=== PATIENT | female | born 1995 | race Caucasian/White ===

== ENCOUNTER 2021-10-02 10:46 | Day surgery (SDC) | payer OTHER, MEDICAID ==
[2021-09-28 12:40] VITALS: BMI 20.3
[~2021-10-02 10:46] MED LIST: DEXAMETHASONE SOD PHOSPHATE 4 MG/ML 1 ML VIAL IV ONE; LACTATED RINGERS 1,000 ML IV SCH; LIDOCAINE 1% (10MG/ML) FOR IV START INTRADERMA PRN; METOCLOPRAMIDE 5 MG/ML 2 ML VIAL IVP PRN; ONDANSETRON 4 MG/2 ML VIAL IVP ONE
[2021-10-02] MEDS ORDERED: MIDAZOLAM 2 MG/2 ML VIAL IVP ONE (12:13)
[2021-10-02] MEDS ORDERED: fentaNYL (PF) 50 MCG/ML 2 ML AMP IVP ONE (12:13)
[2021-10-02] MEDS ORDERED: GLYCOPYRROLATE 0.2 MG/ML 2 ML VIAL ONE (12:31)
[2021-10-02] MEDS ORDERED: LIDOCAINE 2% INJ 20 MG/ML (2 ML VIAL) ONE (12:31)
[2021-10-02] MEDS ORDERED: fentaNYL (PF) 50 MCG/ML 2 ML AMP ONE (12:31)
[2021-10-02] MEDS ORDERED: ROPIVACAINE 5 MG/ML 30 ML VIAL ONE (12:31)
[2021-10-02] MEDS ORDERED: PHENYLEPHRINE-0.9% NACL SYG 1,000 MCG/10 ML SYRINGE ONE (12:31)
[2021-10-02] MEDS ORDERED: PROPOFOL 10 MG/ML 20 ML VIAL IV ONE (12:31)
[2021-10-02] MEDS ORDERED: MIDAZOLAM 2 MG/2 ML VIAL ONE (12:31)
[2021-10-02] MEDS ORDERED: LACTATED RINGERS 1,000 ML IV ONE (14:11)
--- NOTE | 2021-10-02 14:49 | P.OP ---
Date of Procedure: 10/02/21 Procedure(s) Performed: PREOPERATIVE DIAGNOSES: 1. Right knee anterior cruciate ligament graft tear, status post ligament reconstruction; 2. Posterior horn lateral meniscus tear, status post meniscus repair; 3. Posterior horn medial meniscus tear POSTOPERATIVE DIAGNOSES: 1. Right knee anterior cruciate ligament graft tear, status post ligament reconstruction; 2. Posterior horn lateral meniscus tear, status post meniscus repair; 3. Stable posterior horn medial meniscus tear, 1 cm, with 3-4 mm of excursion PROCEDURES PERFORMED: 1. Right knee arthroscopically-assisted revision anterior cruciate ligament reconstruction with soft tissue allograft 2. Right knee arthroscopic partial lateral meniscectomy (20%), posterior horn; 3. Removal of tibial hardware (metallic button for graft suspension), and removal of lateral meniscal anchor ANESTHESIA: direct sales representative: Lori Mejias PA-C (assistance with: patient positioning, retraction, graft prep, camera operation, reconstruction, irrigation, closure, dressing) COMPLICATIONS: None ESTIMATED BLOOD LOSS: Less than 20 cc TOURNIQUET: 75 minutes DISPOSITION: To post-anesthesia care unit INDICATIONS: Sung is a 25-year-old female with a history of right knee ACL tear status post reconstruction approximately 3 or 4 years ago and lateral meniscus tear, status post repair. She also apparently has a medial meniscus tear according MRI. We have discussed different approaches to ACL revision reconstruction and the decision is for soft tissue allograft reconstruction with possible meniscal repair versus debridement. I have explained the details of this surgery thoroughly and also explained the potential risks and complications, including the relative risks of graft failure. We have discussed the lower rate of success for revision ACL reconstruction versus her primary. Other risks are inclusive of, but not limited to: bleeding, infection, scarring, discomfort, blood vessel and nerve damage, stiffness, weakness, need for further surgery, failure to relieve symptoms, arthritis, persistence or worsening of problems, , and other risks. The patient and parents are aware of these risks and agree to proceed with surgery. The consent form has been signed. PROCEDURE: After appropriate consent was obtained, the patient was taken to the operating room and placed supine on the operating table. General anesthesia was initiated. The knee was examined under anesthesia. Medial collateral, lateral collateral and posterior cruciate ligaments were all intact. There was positive pivot shift of 2+ and 4mm anterior translation with both Tracie and anterior drawer. Full range of motion was noted without crepitus although she did have some hyperextension of the knee. No effusion or soft tissue swelling was noted. Prepping and draping of the left knee was performed in the usual sterile fashion using ChloraPrep. Care was taken that all pressure points were adequately padded. Leg mcclain and pneumotourniquet were used. Time-out was called according to [facility] standards, confirming patient identity, surgical procedure, side, and antibiotic administration. Graft preparation took place on the Arthrex graft preparation station. Preprepared allograft was used. Measurement and preparation of the graft took place uneventfully. The graft was trimmed down to measure approximately 9-10 mm diameter and 68-72 mm length quadrupled graft. The graft was inserted onto the Arthrex ACL tightrope RT on one side, and the ABS sutures on the other. These devices were then attached to the adjustable sliding units on the prep station. The graft was then set to 20 pounds of tension on the graft prep board and covered with a sterile saline soaked gauze pad. During the preparation of the graft, arthroscopy commenced. The surgical portals were placed directly next to the patellar tendon medially and laterally. Camera and instruments were carefully inserted into the knee and arthroscopy was performed. The patellofemoral joint was normal. Hyaline cartilage was normal. No loose bodies in the medial or lateral gutters, quad tendon normal. No plica. Lateral compartment showed normal hyaline cartilage without defect. Meniscus showed unstable posterior horn lateral meniscus tear with loose meniscal anchor suture. This anchor suture along with its attached button was removed carefully. The lateral meniscus had re-torn in this region and was unstable. The tear was in the white white zone and considering its previous repair I did not feel that a repeat attempted repair would be successful. Therefore the posterior horn lateral meniscus tear was removed via meniscectomy with a basket forceps and shaver. Approximately 20% of meniscus was resected during this step No loose bodies were seen within the lateral compartment. Medial compartment was then examined. Medial hyaline cartilage of the femur and tibia were normal. Medial meniscus showed a stable posterior horn meniscus tear with approximately 3-4 mm of excursion and a total size approximately 1 cm. As the tear was small and stable, no resection was performed. The notch of the knee was then inspected. The patient had severe laxity of the previously placed graft without marium disruption. These loose fibers were debrided away with care to avoid injuring the PCL. The soft tissue on the lateral side of the notch was cleared as necessary using a shaver, and the FiberWire suture in this region was removed carefully using a grasping forcep. Similarly, the suture material around the tibial graft site was removed carefully one accessible using a grasping forcep. Next, the femoral socket was created using the Arthrex flip cutter guide. The guide was adjusted through the anterolateral portal after careful measurement of the anterior to posterior condylar distance on the lateral notch. A spot approximately between 40 and 50% of this length was chosen and the guide was moved superiorly only as much as to allow for a 2.5 mm back wall. This corresponded almost exactly to the previously created tunnel. Incision was created on the lateral side of the thigh over the IT band and the guide was placed against the bone. Guide position was adjusted so that there was 20 of anterior elevation in the coronal plane of the femur and 60 in the sagittal plane. Drilling was then performed using the flip cutter drill pin into the knee at the appropriate location. Once the pin position was noted to be satisfactory, the guide was removed and the drill sleeve was tapped into the bone using a mallet. The flip cutter was then deployed and retro-drilling was performed to create a femoral socket of approximately 25 mm. Debris was suctioned out using a shaver. Passing suture was then inserted into the knee joint and carried out through the anteromedial portal. The tibial tunnel was created by the following steps. The button for fixation of the previous graft of the tibia was removed through a 2 cm incision on the anterior aspect of the knee directly over the previous incision. Sutures attached to the button were also removed. The retro-cutter aiming guide for the tunnel was placed into the anteromedial portal and onto the cleared central footprint of the havasupai ACL. The guide cylinder was placed securely on the tibial cortex. The tibial bone length was measured. The retro-cutter guide pin was then inserted into the tibia to emerge at the mid-posterior aspect of the havasupai ACL footprint, approximately 5 mm from the PCL and just anterior to the posterior border of the anterior horn of the lateral meniscus. The pin was noted to be in excellent position. The retro-cutter was then deployed and reverse drilling was performed creating a tibial socket approximately 30 mm in length. No fracture was noted. The intraarticular debris was removed using a shaver. Graft passing suture was placed. The femoral portion of the GraftLink construct was then inserted into the knee joint, guided by the passing suture. The Endobutton was carried through the femoral cortex and flipped, engaging the cortex securely. Approximately 10 mm or so of the graft was then placed into the femoral socket, using the sutures of the Endobutton. In similar fashion, the graft passing suture was placed into the loop and brought out through the tibial tunnel. This brought the tibial ABS sutures along with it. Approximately 15 mm of graft was placed within the tibial tunnel at which point the adjustable button for the tibia was placed on the sutures. The femoral portion of the graft was completely deployed at this point and bottomed out nicely. The adjustable button was confirmed to be on the cortex of the tibia without interposed soft tissue and preliminary tensioning was performed at that point in full extension. No graft impingement was noted. The knee was then taken through range of motion cycling 10 times. There was no significant motion of the graft detected and the femoral and tibial fixation was noted to be solid. Further tightening of the sutures was performed in extension from the tibial side and the knee was cycled 10 more times with final tightening of the sutures at that point. Sutures were then tied together over the button. Knee was then taken through range of motion which was noted to be full. No graft impingement was noted at the roof or sides of the notch. Fluid was removed from the knee and testing was performed. Anterior drawer 0 mm and Tracie 0 mm. Negative pivot shift. Tourniquet was deflated. Hemostasis was obtained using cautery and pressure. Graft passing sutures were removed or cut as necessary. Thorough irrigation using antibiotic solution was performed, and portals were closed with 4-0 Monocryl suture. Posterior medial incision for hamstring harvest was closed with 3-0 Vicryl suture in the subcutaneous tissue, followed by 4-0 Monocryl suture in running subcuticular fashion for the skin, followed by Dermabond. Tibial incision was closed with 4-0 Monocryl for the skin. Steri strips were applied. Sterile dressing and light compressive dressing was applied using Webril and VANIA wrap. Knee immobilizer was applied. Patient tolerated the procedure well and taken to recovery room in stable condition. Sponge and needle counts were correct.
[2021-10-02 14:59] VITALS: TEMP 97.8
--- NOTE | 2021-10-02 15:02 | P.ANPRN ---
Procedure Note - Anesthesia - Nerve Block Performed Right Adductor Canal Single Date of Procedure: 10/02/21 Procedure Start Time: 12:12 Procedure Stop Time: 12:17 Location of Patient: PreOp Indication: Acute Post-Operative Pain, Requested by Surgeon Sedation Type: Sedate with meaningful contact maintained Preparation: Sterile Prep Position: Supine Catheter: None Needle Types: Facet Needle Gauge: 20 Ultrasound used to visualize needle placement: Yes Ultrasound used to observe medication spread: Yes Injectate: 0.5% Ropivacaine (see comment for volume) Blood Aspirated: No Pain Paresthesia on Injection Noted: No Resistance on Injection: Normal Image Stored and Saved: Yes Events: Uneventful and Well Tolerated (20 mls of Ropivacaine 0.5%)
[2021-10-02] MEDS: HYDROmorphone 0.5 MG/0.5 ML SYRINGE IVP PRN ×3 (15:10→15:25)
[2021-10-02 16:01] VITALS: BP 103/68; PULSE 80; RESP 18
[2021-10-02] MEDS ORDERED: HYDROcodone/APAP 5-325MG 1 EACH TAB ONE (16:04)
[2021-10-02] MEDS ORDERED: HYDROcodone/APAP 5-325MG 1 EACH TAB PO ONE (16:05)
[2021-10-02] MEDS ORDERED: METOCLOPRAMIDE 5 MG/ML 2 ML VIAL IVP ONE (16:24)
== END 2021-10-02 17:18 | disposition home or self-care (01) ==
LOC: OR 10:46
PROVIDERS: ATTEND Orthopaedic Surgery
DX: O99.891 Other specified diseases and conditions complicating pregnancy (principal); S83.511D Sprain of anterior cruciate ligament of right knee, subsequent encounter; M23.221 Derangement of posterior horn of medial meniscus due to old tear or injury, right knee; M23.251 Derangement of posterior horn of lateral meniscus due to old tear or injury, right knee; M23.41 Loose body in knee, right knee; Z98.890 Other specified postprocedural states; G89.18 Other acute postprocedural pain; Z96.9 Presence of functional implant, unspecified; Z79.82 Long term (current) use of aspirin; Z79.899 Other long term (current) drug therapy; X58.XXXD Exposure to other specified factors, subsequent encounter; Z3A.00 Weeks of gestation of pregnancy not specified; Z87.891 Personal history of nicotine dependence
CPT/HCPCS: 64447; 81025; 76942; 29881; 20680; 29888; C1713 ×4; C1762; J2250; J1100; J2765; J2405; J3010; J2795; J2370; J2704; J1170; J2001